=== PATIENT | female | born 1970 | race Caucasian/White ===

== ENCOUNTER 2023-10-19 17:58 | Inpatient (IN) | payer OTHER, MEDICARE ==
[~2023-10-19] VITALS: Ht 162.6 cm; Wt 80.7 kg
[2023-10-19 18:05] VITALS: BP 105/42; PULSE 121; RESP 15; TEMP 97.8; O2SAT 98
[2023-10-19 18:50] LABS: BASOPHILS % (AUTO) 0.1 % (0.0-2.0); EOSINOPHILS # (AUTO) 0.1 K/uL (0-0.4); EOSINOPHILS % (AUTO) 0.7 % (0.0-4.0); HEMATOCRIT 36.2 % (36-48); HEMOGLOBIN 12.2 g/dL (12.0-16.0); LYMPHOCYTES # (AUTO) 0.6 K/uL (2.5-16.5); LYMPHOCYTES % (AUTO) 4.9 % (20.5-51.1); MEAN CORPUSCULAR HEMOGLOBIN 28 pg (27-31); MEAN CORPUSCULAR HGB CONC 34 g/dL (33-37); MEAN CORPUSCULAR VOLUME 81.7 fL (80-94); MONOCYTES # (AUTO) 0.8 K/uL (0.8-1.0); MONOCYTES % (AUTO) 6.6 % (1.7-9.3); NEUTROPHILS # (AUTO) 10.1 K/uL (1.8-7.7); NEUTROPHILS % (AUTO) 87.7 % (42.2-75.2); PLATELET COUNT (AUTO) 369 K/uL (140-450); RED BLOOD CELL COUNT(AUTO) 4.43 MIL/uL (4.20-5.40); RED CELL DISTRIBUTION WIDTH 14.2 % (11.6-13.7); WHITE BLOOD COUNT (AUTO) 11.5 K/uL (4.8-10.8)
[2023-10-19 19:16] LABS: ALBUMIN 2.9 g/dL (3.4-5.0); ANION GAP 17.5 (8-16); CALCIUM 9.7 mg/dL (8.5-10.1); CARBON DIOXIDE 22.3 mmol/L (21-32); CREATININE 2.1 mg/dL (0.6-1.3); POTASSIUM 3.8 mmol/L (3.5-5.1); TOTAL BILIRUBIN 0.8 mg/dL (0.0-1.0); TOTAL PROTEIN, SERUM 8.3 g/dL (6.4-8.2)
[2023-10-19] MEDS ORDERED: ACETAMINOPHEN EXTRA STRENGTH 500 MG TAB PO ONE (19:45)
[2023-10-19] MEDS ORDERED: NACL 0.9% 1,000 ML IV ONE (19:45)
[2023-10-19] MEDS ORDERED: KETOROLAC 30 MG/ML VIAL IVP ONE (19:45)
[2023-10-19 20:19] LABS: BILIRUBIN,URINE NEGATIVE (NEGATIVE); BLOOD, URINE 2+ (NEGATIVE); COLOR,URINE YELLOW (YELLOW); LEUKOCYTE ESTERASE ,URINE 2+ (NEGATIVE); NITRITE, URINE POSITIVE (NEGATIVE); PROTEIN,URINE 2+ (NEGATIVE); UGLUCOSE NEGATIVE (NEGATIVE); UROBILINOGEN,URINE 0.2 EU/dL (0.2 - 1)
[2023-10-19 20:23] LABS: APPEARANCE,URINE HAZY (CLEAR)
[2023-10-19 20:55] LABS: BACTERIA,URINE 2+ /HPF (None Seen); RBC,URINE 0-5 /HPF (0-5); SQUAMOUS EPITHELIAL CELL,UR 4-10 (MOD) /LPF (0-3 (FEW)); WBC,URINE 80-100 /HPF (0-5)
[2023-10-19] MEDS ORDERED: MORPHINE SULFATE 4 MG/ML SYR IVP ONE (21:25)
[2023-10-19] MEDS ORDERED: cefTRIAXone 1,000 MG VIAL ONE (21:37)
[2023-10-20] VITALS (7 sets, daily range): BP systolic 122–152; BP diastolic 61–78; PULSE 68–120; RESP 18–20; TEMP 97.4–98.3; O2SAT 97–99
[2023-10-20] MEDS ORDERED: BUPR-160 PO (00:44)
[2023-10-20] MEDS ORDERED: TRI48 PO (00:44)
[2023-10-20] MEDS ORDERED: METF-346 PO (00:44)
[2023-10-20] MEDS ORDERED: ONDANSETRON 4 MG/2 ML VIAL IM/IVP PRN (01:05)
[2023-10-20] MEDS ORDERED: ZOLPIDEM 5 MG TAB PO PRN (01:05)
[2023-10-20] MEDS ORDERED: POTASSIUM CHLORIDE 10 MEQ TABER PO PRN (01:05)
[2023-10-20] MEDS ORDERED: guaiFENesin DM 200/20 MG-10 ML 10 ML UDC PO PRN (01:05)
[2023-10-20] MEDS ORDERED: DOCUSATE SODIUM 100 MG GELCAP PO PRN (01:05)
[2023-10-20] MEDS ORDERED: HYDROcodone/APAP 7.5/325 MG 1 TAB PO PRN (01:05)
[2023-10-20] MEDS ORDERED: ACETAMINOPHEN 325 MG TAB PO PRN (01:05)
[2023-10-20] MEDS ORDERED: NACL 0.9% 1,000 ML IV SCH (01:05)
[2023-10-20 06:55] LABS: BASOPHILS % (AUTO) 0.2 % (0.0-2.0); EOSINOPHILS # (AUTO) 0.1 K/uL (0-0.4); EOSINOPHILS % (AUTO) 1.3 % (0.0-4.0); HEMATOCRIT 31.6 % (36-48); HEMOGLOBIN 10.6 g/dL (12.0-16.0); LYMPHOCYTES # (AUTO) 0.3 K/uL (2.5-16.5); LYMPHOCYTES % (AUTO) 3.1 % (20.5-51.1); MEAN CORPUSCULAR HEMOGLOBIN 28 pg (27-31); MEAN CORPUSCULAR HGB CONC 34 g/dL (33-37); MEAN CORPUSCULAR VOLUME 82.9 fL (80-94); MONOCYTES # (AUTO) 0.8 K/uL (0.8-1.0); MONOCYTES % (AUTO) 8.4 % (1.7-9.3); NEUTROPHILS # (AUTO) 7.9 K/uL (1.8-7.7); PLATELET COUNT (AUTO) 295 K/uL (140-450); RED BLOOD CELL COUNT(AUTO) 3.82 MIL/uL (4.20-5.40); RED CELL DISTRIBUTION WIDTH 14.8 % (11.6-13.7); WHITE BLOOD COUNT (AUTO) 9.1 K/uL (4.8-10.8)
[2023-10-20 07:25] LABS: ALBUMIN 2.4 g/dL (3.4-5.0); ANION GAP 14.7 (8-16); CALCIUM 8.7 mg/dL (8.5-10.1); CARBON DIOXIDE 22.1 mmol/L (21-32); POTASSIUM 3.8 mmol/L (3.5-5.1); TOTAL BILIRUBIN 0.5 mg/dL (0.0-1.0); TOTAL PROTEIN, SERUM 6.9 g/dL (6.4-8.2)
[2023-10-20] MEDS: PANTOPRAZOLE 40 MG TABEC PO SCH (08:15)
[2023-10-20] MEDS ORDERED: MORPHINE SULFATE 2 MG/ML SYR IVP PRN (08:20)
[2023-10-20] MEDS ORDERED: NACL 0.9% 500 ML IV SCH (08:20)
[2023-10-20] MEDS ORDERED: INSULIN LISPRO SLIDING SCALE 100 UNITS/ML VIAL SUBQ PRN (08:20)
[2023-10-20] MEDS ORDERED: DEXTROSE 50% 50 ML SYR IVP PRN (08:20)
[2023-10-20] MEDS: TAMSULOSIN 0.4 MG CAP PO SCH ×2 (08:38→20:15)
[2023-10-20] MEDS ORDERED: buPROPion 75 MG TAB PO SCH (09:00)
[2023-10-20] MEDS: NACL 0.9% 1,000 ML IV SCH ×2 (09:15→16:02)
[2023-10-20] MEDS ORDERED: BLOOD GLUCOSE MONITORING 1 DEV DEV FS SCH (11:30)
[2023-10-21] MEDS ORDERED: ZOLPIDEM 5 MG TAB ONE (00:04)
[2023-10-21 04:00] VITALS: BP 135/68; PULSE 100; RESP 18; TEMP 97.6; O2SAT 98
[2023-10-21] MEDS: NACL 0.9% 1,000 ML IV SCH ×2 (05:15→15:15)
[2023-10-21 05:51] LABS: BASOPHILS % (AUTO) 0.3 % (0.0-2.0); EOSINOPHILS # (AUTO) 0.3 K/uL (0-0.4); EOSINOPHILS % (AUTO) 3.2 % (0.0-4.0); HEMATOCRIT 27.3 % (36-48); HEMOGLOBIN 9.4 g/dL (12.0-16.0); LYMPHOCYTES # (AUTO) 0.7 K/uL (2.5-16.5); LYMPHOCYTES % (AUTO) 8.5 % (20.5-51.1); MEAN CORPUSCULAR HEMOGLOBIN 28 pg (27-31); MEAN CORPUSCULAR HGB CONC 34 g/dL (33-37); MEAN CORPUSCULAR VOLUME 81.3 fL (80-94); MONOCYTES # (AUTO) 0.8 K/uL (0.8-1.0); MONOCYTES % (AUTO) 9.9 % (1.7-9.3); NEUTROPHILS # (AUTO) 6.2 K/uL (1.8-7.7); NEUTROPHILS % (AUTO) 78.1 % (42.2-75.2); PLATELET COUNT (AUTO) 293 K/uL (140-450); RED BLOOD CELL COUNT(AUTO) 3.36 MIL/uL (4.20-5.40); RED CELL DISTRIBUTION WIDTH 14.4 % (11.6-13.7)
[2023-10-21 06:12] LABS: ANION GAP 15.9 (8-16); CALCIUM 8.4 mg/dL (8.5-10.1); CARBON DIOXIDE 19.7 mmol/L (21-32); CREATININE 1.4 mg/dL (0.6-1.3); POTASSIUM 3.6 mmol/L (3.5-5.1)
[2023-10-21 08:00] VITALS: BP 137/75; PULSE 89; RESP 18; TEMP 97.3; O2SAT 99
[2023-10-21 08:05] LABS: INR 0.92 (0.8-1.2); PARTIAL THROMBOPLASTIN TIME 38.6 secs (22-35.6); PROTHROMBIN TIME 9.7 secs (10.8-13.4)
[2023-10-21] MEDS: buPROPion 150 MG TABER PO SCH (09:00)
[2023-10-21] MEDS: TAMSULOSIN 0.4 MG CAP PO SCH ×2 (09:00→20:25)
[2023-10-21] MEDS: PANTOPRAZOLE 40 MG TABEC PO SCH (09:00)
[2023-10-21] MEDS ORDERED: DEXAMETHASONE 4 MG/ML VIAL ONE (14:00)
[2023-10-21] MEDS ORDERED: fentaNYL citrate 0.05 MG/ML - 50mL vial IV ONE (14:00)
[2023-10-21] MEDS ORDERED: MIDAZOLAM 2 MG/2 ML VIAL ONE (14:00)
[2023-10-21] MEDS ORDERED: ONDANSETRON 4 MG/2 ML VIAL ONE (14:00)
[2023-10-21] MEDS ORDERED: SEVOFLURANE 250 ML BTL INH ONE (14:00)
[2023-10-21] MEDS ORDERED: PROPOFOL 200 MG/20 ML VIAL IV ONE (14:00)
[2023-10-21] MEDS ORDERED: SUCCINYLCHOLINE CHLORIDE 200 MG/10 ML VIAL IVP ONE (14:00)
[2023-10-21] MEDS ORDERED: ONDANSETRON 4 MG/2 ML VIAL IVP PRN (15:35)
[2023-10-21] MEDS ORDERED: HYDROmorphone 1 MG/ML AMP IVP PRN (15:35)
[2023-10-21 20:00] VITALS: BP 140/70; PULSE 96; RESP 18; TEMP 97.4; O2SAT 100
[2023-10-22] MEDS: NACL 0.9% 1,000 ML IV SCH ×2 (01:15→08:50)
[2023-10-22 04:00] VITALS: BP 119/68; PULSE 71; RESP 18; TEMP 97.3; O2SAT 98
[2023-10-22 08:00] VITALS: BP 125/71; PULSE 74; RESP 18; TEMP 96.9; O2SAT 100
[2023-10-22] MEDS: buPROPion 150 MG TABER PO SCH (08:42)
[2023-10-22] MEDS: TAMSULOSIN 0.4 MG CAP PO SCH (08:43)
[2023-10-22] MEDS: PANTOPRAZOLE 40 MG TABEC PO SCH (08:43)
[2023-10-22 09:04] LABS: BASOPHILS % (AUTO) 0.2 % (0.0-2.0); EOSINOPHILS % (AUTO) 0.3 % (0.0-4.0); HEMATOCRIT 29.4 % (36-48); HEMOGLOBIN 9.7 g/dL (12.0-16.0); LYMPHOCYTES # (AUTO) 0.8 K/uL (2.5-16.5); LYMPHOCYTES % (AUTO) 9.1 % (20.5-51.1); MEAN CORPUSCULAR HEMOGLOBIN 28 pg (27-31); MEAN CORPUSCULAR HGB CONC 33 g/dL (33-37); MEAN CORPUSCULAR VOLUME 83.7 fL (80-94); MONOCYTES # (AUTO) 0.7 K/uL (0.8-1.0); MONOCYTES % (AUTO) 8.3 % (1.7-9.3); NEUTROPHILS # (AUTO) 7.3 K/uL (1.8-7.7); NEUTROPHILS % (AUTO) 82.1 % (42.2-75.2); PLATELET COUNT (AUTO) 384 K/uL (140-450); RED BLOOD CELL COUNT(AUTO) 3.52 MIL/uL (4.20-5.40); RED CELL DISTRIBUTION WIDTH 14.5 % (11.6-13.7)
[2023-10-22 09:14] LABS: ANION GAP 14.8 (8-16); CALCIUM 8.5 mg/dL (8.5-10.1); CARBON DIOXIDE 22.2 mmol/L (21-32); CREATININE 1.3 mg/dL (0.6-1.3)
[2023-10-22] MEDS ORDERED: DOCU-299 PO (15:03)
[2023-10-22] MEDS ORDERED: TAMS0.4C96 PO (15:03)
== END 2023-10-22 16:55 | disposition home or self-care (01) | DRG 854 ==
LOC: MED 17:58 → MTU 10-20 01:07 → MMU 10-20 03:13
PROVIDERS: ADMIT Student in an Organized Health Care Education/Training Program; ATTEND Student in an Organized Health Care Education/Training Program
PROC: BT1DZZZ Fluoroscopy of Right Kidney, Ureter and Bladder (ICD-10-PCS; 2023-10-21)
PROC: 0TC68ZZ Extirpation of Matter from Right Ureter, Via Natural or Artificial Opening Endoscopic (ICD-10-PCS; 2023-10-21)
PROC: 0T768DZ Dilation of Right Ureter with Intraluminal Device, Via Natural or Artificial Opening Endoscopic (ICD-10-PCS; principal; 2023-10-21 13:00)
DX: A41.9 Sepsis, unspecified organism (principal); N13.6 Pyonephrosis; N17.9 Acute kidney failure, unspecified; M06.9 Rheumatoid arthritis, unspecified; D64.9 Anemia, unspecified; R79.89 Other specified abnormal findings of blood chemistry
CPT/HCPCS: 36415; 80048; 80053; 81001; 82948; 83690; 84703; 85025; 85610; 85730; 87040; 87081; 87086; 88300; 93005; C1758; C1769; C2617; J0330; J0696; J1100; J1644; J1885; J2250; J2270; J2405; J2704; J3010; J7060; Q0092